=== PATIENT | male | born 1955 | race Two or more races ===

== ENCOUNTER 2019-10-23 19:42 | Inpatient (IN) | payer MEDICAID, OTHER ==
[~2019-10-23] VITALS: Ht 170.2 cm; Wt 57.5 kg
[2019-10-23 20:17] LABS: BASOPHILS # (AUTO) 0.04 x10^3/uL (0-0.1); BASOPHILS % (AUTO) 1 % (0-1); EOSINOPHILS # (AUTO) 0.14 x10^3/uL (0-0.4); EOSINOPHILS % (AUTO) 2 % (1-7); LYMPHOCYTES # (AUTO) 1.34 x10^3/uL (1-3.4); LYMPHOCYTES % (AUTO) 16 % (22-44); MD NO; MEAN CORPUSCULAR HEMOGLOBIN 32.1 pg (27.5-34.5); MEAN CORPUSCULAR HGB CONC 32.9 g/dL (33.2-36.2); MEAN CORPUSCULAR VOLUME 97.7 fL (81-97); MEAN PLATELET VOLUME 8.4 fL (7.4-10.4); MONOCYTES % (AUTO) 5 % (2-9); NEUTROPHILS # (AUTO) 6.23 x10^3/uL (1.8-6.8); NEUTROPHILS % (AUTO) 77 % (42-75); PLATELET COUNT 175 x10^3/uL (130-400); RED BLOOD COUNT 4.99 x10^6/uL (4.38-5.82); RED CELL DISTRIBUTION WIDTH 13.9 % (9.4-14.8)
[2019-10-23 20:30] LABS: ALANINE AMINOTRANSFERASE 73 U/L (12-78); ALBUMIN 4.3 g/dL (3.4-5.0); ANION GAP 5 mmol/L (5-15); CALCIUM 9.1 mg/dL (8.5-10.1); CHLORIDE 102 mmol/L (98-107); CREATININE 0.89 mg/dL (0.7-1.3)
[2019-10-23 20:32] LABS: ALKALINE PHOSPHATASE 94 U/L (45-117); BILIRUBIN,TOTAL 1.1 mg/dL (0.2-1.0); TOTAL PROTEIN 7.9 g/dL (6.4-8.2)
[2019-10-23] MEDS ORDERED: ONDANSETRON 2MG/ML, 2ML IVPush ONE (21:30)
[2019-10-23] MEDS ORDERED: SODIUM CHLORIDE FLUSH 10ML SYR IVF ONE (21:30)
[2019-10-23] MEDS ORDERED: MORPHINE SULFATE 4 MG/ML, 1ML IVPush PRN (21:30)
[2019-10-23] MEDS ORDERED: SODIUM CHLORIDE 0.9% 1,000ML IVBOLUS ONE (21:30)
[2019-10-23] MEDS ORDERED: MORPHINE SULFATE 4 MG/ML, 1ML ONE (21:37)
[2019-10-23] MEDS ORDERED: ONDANSETRON 2MG/ML, 2ML ONE (21:37)
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
--- NOTE | 2019-10-23 22:24 | NUR ---
ERP AT BEDSIDE. RECEIVED REPORT FROM NELDA MELÉNDEZ.
--- NOTE | 2019-10-23 22:37 | NUR ---
PATIENT TO CT SCAN.
[2019-10-23] MEDS ORDERED: OMNIPAQUE 350 MG/ML, 100ML BOTTLE ONE (22:43)
--- NOTE | 2019-10-23 22:54 | NUR ---
GEN SURG PAGED.
--- NOTE | 2019-10-23 23:37 | NUR ---
NGT INSERTED. BED ASSIGNED. REPORT TO NELDA KERNS.
[2019-10-23 23:51] LABS: MICROSCOPIC NOT IND
[2019-10-23 23:54] LABS: CULTURE INDICATED? NO
[2019-10-24] MEDS ORDERED: LIDODERM 5% PATCH TD PRN
[2019-10-24] MEDS ORDERED: BISACODYL 10 MG SUPP PR PRN
[2019-10-24] MEDS ORDERED: ONDANSETRON 2MG/ML, 2ML IVPush PRN
[2019-10-24] MEDS ORDERED: LORazepam 2 MG/ML, 1ML IVPush PRN
[2019-10-24] MEDS ORDERED: hydrALAzine 20 MG/ML, 1ML IVPush PRN
[2019-10-24 00:06] VITALS: BP 131/79
[2019-10-24] MEDS: LACTATED RINGERS 1,000 ML IV SCH ×3 (00:32→21:23)
[2019-10-24] MEDS ORDERED: FLU VACC QS2019-20 36MOS UP/PF 0.5 ML IM-VACC ONE (01:30)
[2019-10-24 05:20] LABS: BASOPHILS # (AUTO) 0.04 x10^3/uL (0-0.1); BASOPHILS % (AUTO) 1 % (0-1); EOSINOPHILS # (AUTO) 0.17 x10^3/uL (0-0.4); EOSINOPHILS % (AUTO) 2 % (1-7); LYMPHOCYTES # (AUTO) 1.85 x10^3/uL (1-3.4); LYMPHOCYTES % (AUTO) 25 % (22-44); MD NO; MEAN CORPUSCULAR HEMOGLOBIN 32.2 pg (27.5-34.5); MEAN CORPUSCULAR HGB CONC 33.1 g/dL (33.2-36.2); MEAN CORPUSCULAR VOLUME 97.3 fL (81-97); MEAN PLATELET VOLUME 8.8 fL (7.4-10.4); MONOCYTES # (AUTO) 0.56 x10^3/uL (0.2-0.8); MONOCYTES % (AUTO) 8 % (2-9); NEUTROPHILS # (AUTO) 4.74 x10^3/uL (1.8-6.8); NEUTROPHILS % (AUTO) 64 % (42-75); PLATELET COUNT 147 x10^3/uL (130-400); RED BLOOD COUNT 4.55 x10^6/uL (4.38-5.82)
[2019-10-24 05:25] LABS: ANION GAP 8 mmol/L (5-15); CALCIUM 7.8 mg/dL (8.5-10.1); CHLORIDE 104 mmol/L (98-107)
[2019-10-24 05:27] LABS: CREATININE 0.75 mg/dL (0.7-1.3)
[2019-10-24 07:37] VITALS: BP 125/75
[2019-10-24] MEDS: morphine SULFATE 10 MG/ML, 1ML IVPush PRN ×3 (10:56→21:30)
[2019-10-24 14:54] VITALS: BP 114/73
[2019-10-24 21:17] VITALS: BP 150/89
[2019-10-25] MEDS: morphine SULFATE 10 MG/ML, 1ML IVPush PRN ×4 (03:39→22:40)
[2019-10-25 03:41] VITALS: BP 119/79
[2019-10-25] MEDS: LACTATED RINGERS 1,000 ML IV SCH ×2 (06:22→16:28)
[2019-10-25 07:24] VITALS: BP 117/77
[2019-10-25 14:01] VITALS: BP 114/76
[2019-10-25 20:16] VITALS: BP 105/66
[2019-10-26 01:01] VITALS: BP_SYST 88; BP_SYST 96; BP_DIAS 51; BP_DIAS 57
[2019-10-26] MEDS: LACTATED RINGERS 1,000 ML IV SCH ×2 (01:12→12:01)
[2019-10-26 03:47] VITALS: BP 112/66
[2019-10-26 08:03] VITALS: BP 124/76
[2019-10-26] MEDS: morphine SULFATE 10 MG/ML, 1ML IVPush PRN (08:55)
[2019-10-26 12:56] VITALS: BP 115/68
== END 2019-10-26 13:45 | disposition home or self-care (01) | DRG 389 ==
LOC: ED 23:23 → EDIP 23:25 → 3N 23:55 → 4NE 10-24 13:20
PROVIDERS: ADMIT Family Medicine; ATTEND Family Medicine
PROC: 0D9670Z Drainage of Stomach with Drainage Device, Via Natural or Artificial Opening (ICD-10-PCS; principal; 2019-10-23)
DX: K56.51 Intestinal adhesions [bands], with partial obstruction (principal); E87.1 Hypo-osmolality and hyponatremia; F15.20 Other stimulant dependence, uncomplicated; E11.9 Type 2 diabetes mellitus without complications; E78.5 Hyperlipidemia, unspecified; F17.210 Nicotine dependence, cigarettes, uncomplicated; I10 Essential (primary) hypertension; K70.30 Alcoholic cirrhosis of liver without ascites; Q43.0 Meckel's diverticulum (displaced) (hypertrophic); N43.3 Hydrocele, unspecified; Z83.3 Family history of diabetes mellitus
CPT/HCPCS: 36415; 74018; 74021; 74177; 80048; 80053; 81003; 83690; 85025; 90686; 96374; G0378; J2405; Q9967; J2270; J7030; J7120